=== PATIENT | female | born 1950 | race Caucasian/White ===

== ENCOUNTER 2024-08-30 08:25 | Outpatient (CLI) | payer MEDICARE, BC | END 2024-08-30 23:59 | disposition home or self-care (01) | LOC: MRI02 08:25 | PROVIDERS: ATTEND Pediatrics Sports Medicine | DX: M71.22 Synovial cyst of popliteal space [Baker], left knee (principal); M25.562 Pain in left knee; M17.12 Unilateral primary osteoarthritis, left knee; M22.42 Chondromalacia patellae, left knee | CPT/HCPCS: 73721 ==